=== PATIENT | male | born 1950 | race African-American/Black ===

== ENCOUNTER 2023-08-25 11:57 | Emergency (ER) | payer OTHER, MEDICAID ==
[~2023-08-25] VITALS: Ht 175.3 cm; Wt 78.0 kg
[2023-08-25] MEDS ORDERED: MORPHINE SULFATE 4 MG/ML CPJ (NOT FOR IM USE) IV STA (12:22)
[2023-08-25] MEDS ORDERED: SODIUM CHLORIDE 0.9% 1,000 ML IV ONE (12:30)
[2023-08-25 14:51] LABS: CLARITY URINE TURBID (CLEAR); COLOR URINE ORANGE (YELLOW); GLUCOSE URINE NEGATIVE (NEGATIVE); KETONES URINE NEGATIVE (NEGATIVE); LEUKOCYTE ESTERASE URINE 2+ (NEGATIVE); NITRITE URINE POSITIVE (NEGATIVE); OCCULT BLOOD URINE 3+ (NEGATIVE); PH URINE 5.5 (4.5-8.0); PROTEIN URINE 3+ (NEGATIVE); SPECIFIC GRAVITY URINE 1.021 (1.005-1.030)
[2023-08-25 14:53] LABS: HEMATOCRIT. 42.1 % (42.0-52.0); HEMOGLOBIN. 14.1 g/dL (14.0-18.0); MEAN CORPUSCULAR HEMOGLOBIN 29.6 pg (28.0-32.0); MEAN CORPUSCULAR HGB CONC 33.4 g/dL (31.0-37.0); MEAN CORPUSCULAR VOLUME 88.6 fL (80.0-94.0); MEAN PLATELET VOLUME 11.6 fl (7.4-10.4); PLATELET 116 x1000/uL (130-400); RED BLOOD CELL COUNT 4.75 mill/uL (4.7-6.1); RED CELL DISTRIBUTION WIDTH 16.4 % (11.6-14.6); WHITE BLOOD COUNT 17.7 x1000/uL (4.5-11.0)
[2023-08-25 14:56] LABS: BACTERIA URINE 4+; SQUAMOUS EPITHELIAL CELL URINE NONE SEEN /lpf (RARE/1+); WBC URINE TNTC /hpf (0-2); YEAST URINE NONE SEEN
[2023-08-25 15:02] LABS: INR 1.4; PARTIAL THROMBOPLASTIN TIME 31.6 sec (23.4-31.0); PROTHROMBIN TIME 15.1 sec (9.6-11.0)
[2023-08-25 15:14] LABS: DIFFERENTIAL COMMENT 1
[2023-08-25] MEDS ORDERED: CEFTRIAXONE 1GM PREMIX 50 ML IV ONE (15:15)
[2023-08-25 15:43] LABS: PLATELET ESTIMATE DECREASED
[2023-08-25 17:03] LABS: ALANINE AMINOTRANSFERASE 44 IU/L (10-49); ALBUMIN 2.8 g/dL (3.2-4.8); ASPARTATE AMINOTRANSFERASE 60 IU/L (<34); BILIRUBIN TOTAL 3.4 mg/dL (0.1-1.0); CALCIUM 8.7 mg/dL (8.7-10.4); CARBON DIOXIDE 21 mEq/L (21-32); CHLORIDE 108 mEq/L (98-107); GLUCOSE 141 mg/dL (70-105); PROTEIN TOTAL 5.9 g/dL (6.0-8.3); SODIUM 141 mEq/L (136-145); UREA NITROGEN BLOOD 17 mg/dL (9-23)
[2023-08-25 17:06] LABS: TROPONIN I HIGH SENSITIVITY 410 ng/L (3.0-53)
[2023-08-25 19:30] LABS: TROPONIN I HIGH SENSITIVITY 297 ng/L (3.0-53)
[2023-08-25] MEDS ORDERED: LEVETIRACETAM 500MG PREMIX 100 ML IV ONE (20:30)
[2023-08-26] MEDS ORDERED: ACETAMINOPHEN 325MG TABLET PO ONE (03:45)
[2023-08-26 04:01] VITALS: TEMP 98.6
[2023-08-26 05:12] LABS: HEMATOCRIT. 43.3 % (42.0-52.0); MEAN CORPUSCULAR HEMOGLOBIN 29.3 pg (28.0-32.0); MEAN CORPUSCULAR HGB CONC 32.2 g/dL (31.0-37.0); PLATELET 101 x1000/uL (130-400); RED BLOOD CELL COUNT 4.76 mill/uL (4.7-6.1); RED CELL DISTRIBUTION WIDTH 16.8 % (11.6-14.6); WHITE BLOOD COUNT 20.8 x1000/uL (4.5-11.0)
[2023-08-26 05:19] LABS: ALANINE AMINOTRANSFERASE 96 IU/L (10-49); ASPARTATE AMINOTRANSFERASE 157 IU/L (<34); CALCIUM 9.1 mg/dL (8.7-10.4); CARBON DIOXIDE 25 mEq/L (21-32); CHLORIDE 107 mEq/L (98-107); GLUCOSE 113 mg/dL (70-105); POTASSIUM 4.2 mEq/L (3.5-5.1); PROTEIN TOTAL 6.9 g/dL (6.0-8.3); SODIUM 141 mEq/L (136-145); UREA NITROGEN BLOOD 24 mg/dL (9-23)
[2023-08-26 05:26] LABS: BILIRUBIN TOTAL 4.7 mg/dL (0.1-1.0); CREATININE 1.7 mg/dL (0.6-1.3)
[2023-08-26 05:29] LABS: TROPONIN I HIGH SENSITIVITY 564 ng/L (3.0-53)
[2023-08-26 05:35] LABS: DIFFERENTIAL COMMENT 1
[2023-08-26] MEDS ORDERED: IPRATROPIUM/ALBUTEROL 0.5-3(2.5)MG/3ML NEB HHN ONE (07:15)
[2023-08-26] MEDS ORDERED: ALBUTEROL (0.083%) 2.5MG/3ML NEB HHN ONE (07:15)
[2023-08-26 11:26] LABS: ANISOCYTOSIS 1+; PLATELET ESTIMATE DECREASED
[2023-08-26 12:35] VITALS: PULSE 98; RESP 22; O2SAT 96
[2023-08-26] MEDS ORDERED: ALBUTEROL (0.083%) 2.5MG/3ML NEB HHN NR (12:45)
[2023-08-26] MEDS ORDERED: CEFTRIAXONE 1GM PREMIX 50 ML IV ONE (22:30)
[2023-08-26 23:55] VITALS: BP 99/71; PULSE 96; RESP 21
== END 2023-08-27 00:04 | disposition admitted as inpatient to this hospital (09) ==
LOC: ER 11:57
DX: S06.5XAA Traumatic subdural hemorrhage with loss of consciousness status unknown, initial encounter (principal); I21.4 Non-ST elevation (NSTEMI) myocardial infarction; N39.0 Urinary tract infection, site not specified; J45.909 Unspecified asthma, uncomplicated; J44.9 Chronic obstructive pulmonary disease, unspecified; Z20.822 Contact with and (suspected) exposure to COVID-19; Y04.0XXA Assault by unarmed brawl or fight, initial encounter; Y93.89 Activity, other specified; Y92.89 Other specified places as the place of occurrence of the external cause; Y99.8 Other external cause status
CPT/HCPCS: 80053 ×2; 81003; 83880; 85025 ×2; 85610; 85730; 86850; 86900; 86901; 87086; 87186; 84484 ×2; 87077; 36415 ×2; 71045; 70450 ×2; 70551; 93005; 96367; 96361; 96365; 96375; 99285; 94640; 87426; J1953; J0696; J2270; J7030; C9803; Z7610 ×3